=== PATIENT | male | born 1995 | race Caucasian/White ===

== ENCOUNTER 2016-10-21 18:35 | Emergency (ER) | payer OTHER ==
[~2016-10-21] VITALS: Ht 177.8 cm; Wt 64.4 kg
[2016-10-21 18:43] VITALS: BP 138/85; PULSE 84; RESP 16; TEMP 99.1; O2SAT 98
--- NOTE | 2016-10-21 18:50 | PD ---
HPI Chief Complaint: Cold / Flu Symptoms Time Seen by Provider: 18:50 Travel History International Travel<30 days: No Contact w/Intl Traveler<30days: No Traveled to known affect area: No History of Present Illness HPI 20-year-old male presents to the ED for evaluation of 3 day history of malaise, chills, sore throat, nonproductive cough. Onset gradual. He denies ear pain, rhinorrhea, difficulty swallowing his own secretions, shortness of breath, abdominal pain, nausea or vomiting. Patient endorses sick contacts states his and are both sick. He treated at home with Tylenol with improvement of the chills. PFSH Past Medical History Asthma: Yes Diminished Hearing: No Inguinal Hernia: Yes Past Surgical History Abdominal Surgery: Yes ( INGUINAL HERNIA REPAIR) Cardiac Surgery: Yes (PDA) Other Surgery: Yes (HERNIA REPAIR) Social History Alcohol Use: No (PT DENIES) Tobacco Use: Yes (1 PPD) Substance Use: No Allergies-Medications (Allergen,Severity, Reaction): Coded Allergies: Tramadol (Verified Adverse Reaction, Intermediate, VOMITING, 10/21/16) Reported Meds & Prescriptions Reported Meds & Active Scripts Active Magic Mouthwash Adult Liq (Multi-Ingredient Mouthwash/Gargle) 120 Ml Susp 5 Ml SWISH-SWAL ACHS Each 5mL contains: Nystatin 200,000units, Diphenhydramine 4.25mg, Viscous Lidocaine 10mg, Moreland syrup 0.8 mL Penicillin V Potassium 500 Mg Tab 500 Mg PO Q8H 10 Days Reported Tylenol Extra Strength (Acetaminophen) 500 Mg Tab 500 Mg PO Q6H PRN Review of Systems Except as stated in HPI: all other systems reviewed are Neg Physical Exam Narrative GENERAL: Well-nourished, well-developed ill-appearing white male in no acute distress. SKIN: Focused skin assessment warm/dry. HEAD: Normocephalic. EYES: No scleral icterus. No injection or drainage. ENT: Pearly cardona tympanic membranes bilaterally. Oropharynx with deep erythema , 2+ tonsils with purulent exudates. Uvula midline. Airway patent. NECK: Supple, trachea midline. No JVD. Positive tender anterior and posterior cervical lymphadenopathy. CARDIOVASCULAR: Regular rate and rhythm without murmurs, gallops, or rubs. RESPIRATORY: Breath sounds equal bilaterally. No accessory muscle use. GASTROINTESTINAL: Abdomen soft, non-tender, nondistended. Active bowel sounds. MUSCULOSKELETAL: No cyanosis, or edema. BACK: Nontender without obvious deformity. No CVA tenderness. Data Data Last Documented VS Vital Signs Date Time Temp Pulse Resp B/P Pulse Ox O2 Delivery O2 Flow Rate FiO2 10/21/16 18:43 99.1 84 16 138/85 98 Orders Group A Rapid Strep Screen (10/21/16 19:00) MDM Medical Decision Making Medical Screen Exam Complete: Yes Emergency Medical Condition: Yes Differential Diagnosis Pharyngitis versus strep pharyngitis versus viral syndrome versus influenza versus other Narrative Course 20-year-old male presents to the ED for evaluation of 3 day history of malaise, chills, sore throat, nonproductive cough. Onset gradual. He denies ear pain, rhinorrhea, difficulty swallowing his own secretions, shortness of breath, abdominal pain, nausea or vomiting. Patient endorses sick contacts states his and are both sick. Vitals reviewed. Physical exam reveals an ill- appearing white male in no acute distress. Pearly cardona tympanic membranes bilaterally. Oropharynx with deep red erythema, 2+ tonsils bilaterally with purulent exudates. Uvula midline. Airway patent. Tender anterior and posterior cervical chain lymphadenopathy. Patient meets [facility] criteria. Culture obtained and is pending. Patient was prescribed penicillin VK 500 mg 3 times a day 10 days, Magic mouthwash when necessary for throat pain . He is instructed to continue taking Tylenol for fever, take antibiotics as prescribed , follow up with the primary care provider. He indicated understanding of the instructions and is agreeable to the care plan. He is stable and discharged home. Diagnosis Primary Impression: Strep pharyngitis Referrals: Primary Care Physician Patient Instructions: General Instructions, Strep Throat (ED) Additional Instructions: Rest, hydrate. Take penicillin 500 mg 3 times a day for 10 days. Magic mouthwash as needed for pain. Alternating Motrin and Tylenol every 4-6 hours as needed for continued fever. Increase handwashing frequently to avoid the spread of the virus to other family members and the community. Disinfect commonly touched surfaces such as light switches, microwaves, remote controls. Replace toothbrush at the end of this illness. Follow-up with the primary care provider this week. Return to the ED for any urgent or emergent medical condition. Med/Other Pt SpecificInfo: Prescription(s) given Scripts Dtddimmi-Pmihxqlltwxoulw-Hgklqiroj Liq (Magic Mouthwash Adult Liq)120 Ml Susp5 Ml SWISH-SWAL ACHS #120 ML Ref 0 Each 5mL contains: Nystatin 200,000units, Diphenhydramine 4.25mg, Viscous Lidocaine 10mg, Moreland syrup 0.8 mL Prov:Bradford Obregon MD 10/21/16 Penicillin V Potassium 500 Mg [id number] Mg PO Q8H 10 Days Ref 0 Prov:Bradford Obregon MD 10/21/16 Disposition: 01 DISCHARGE HOME Condition: Stable Linda Rodriguez Oct 21, 2016 18:50
[2016-10-21] MEDS ORDERED: ACET-703 PO (18:53)
[2016-10-21] MEDS ORDERED: PENI500T PO (19:00)
[2016-10-21] MEDS ORDERED: MAGICADU2 SWISH-SWAL (19:00)
== END 2016-10-21 19:07 | disposition home or self-care (01) ==
LOC: PHEFT 18:35
DX: J45.909 Unspecified asthma, uncomplicated (principal); R59.9 Enlarged lymph nodes, unspecified; J02.0 Streptococcal pharyngitis
CPT/HCPCS: 87081; 87880; 99283